=== PATIENT | female | born 1990 | race Caucasian/White ===

== ENCOUNTER 2020-10-30 21:57 | Emergency (ER) | payer SELFPAY ==
[2020-10-30 22:05] VITALS: BP 122/71; PULSE 94; RESP 14; TEMP 36.6; O2SAT 96; BMI 51.3
--- NOTE | 2020-10-30 22:07 | W.ED.BACK ---
HPI - Back Pain/Injury General: Chief Complaint: Back Pain/Injury Stated Complaint: VAGINAL PAIN/BACK PAIN Time Seen by Provider: 10/30/20 22:04 History of Present Illness: HPI Narrative: Patient is a 30-year-old female comes to the ED with lower back pain and UTI symptoms. Lower back pain started around midday today while she was cleaning around the house. She says that back pain started right after she bent over to pick something up. Back pain was 7 out of 10. She says the pain shoots down into her right leg. Patient is also complaining of having some dysuria. She says the dysuria started today. She noticed that she had some foul odor from her vagina about 2 days ago. She also reports having some pain during intercourse within the last 24 hours as well. She denies any vaginal bleeding, vaginal discharge, vaginal lesions or hematuria. Associated symptoms: Reports dysuria; Deny abdominal pain, chills, fatigue, fever(s), hematuria, nausea or vomiting Review of Systems Const: Denies: fever(s), chills or fatigue Eyes: Denies: change in vision or eye discomfort ENMT: Denies: throat pain, odynophagia, nasal discharge or nasal congestion Card: Denies: chest pain, palpitations, edema, swelling of feet/ankles, dyspnea on exertion or orthopnea Resp: Denies: dyspnea, productive cough or non-productive cough GI: Denies: abdominal pain, nausea, vomiting, diarrhea, constipation or hematochezia : Reports: dysuria and dyspareunia; Denies: flank pain or hematuria Musc: Reports: back pain (Low back pain with pain radiating down right leg.); Denies: neck pain or extremity swelling Skin/Breast: Denies: rash or new lesions Neuro: Denies: headache(s), numbness in extremities or weakness in extremities Physical Exam Const: COMMON NORMALS: no acute distress, patient oriented x3 and alert GENERAL APPEARANCE: cooperative and comfortable HENMT: COMMON NORMALS: normocephalic HEAD & SCALP: normocephalic MOUTH: Normal oral and palatal mucosa present THROAT: posterior oropharynx normal and uvula midline Neck/C-Spine: COMMON NORMALS: supple GENERAL: Yes normal visual inspection Resp: COMMON NORMALS: normal respiratory effort, No retractions, No use of accessory muscles and clear to auscultation bilaterally AUSCULTATION: clear to auscultation bilaterally Cardio: COMMON NORMALS: regular rate, regular rhythm, S1 normal heart sound present, S2 normal heart sound present, No gallops present (Cardio), No clicks present (Cardio), No murmurs present (Cardio) and Peripheral pulses 2+ throughout RATE: regular rate RHYTHM: regular rhythm HEART SOUNDS: S1 normal heart sound present and S2 normal heart sound present PERIPHERAL PULSES: Peripheral pulses 2+ throughout GI: COMMON NORMALS: Normal to inspection, nondistended, normoactive bowel sounds present, Soft to palpation, non-tender and no masses PALPATION: Yes Soft to palpation : COMMON NORMALS: Yes no CVA tenderness BLADDER/KIDNEY EXAM: Yes no CVA tenderness EXTERNAL FEMALE EXAM: No erythema, No externally tender, No external swelling, No lesion and No urethral discharge Back/Pelvis: COMMON NORMALS: no CVA tenderness LUMBAR SPINE/LOWER BACK: Yes pain with ROM, Yes paraspinal muscle tenderness Lumbar paraspinal muscle tenderness: right Right lumbar paraspinal muscle tenderness: L4 and L5 and Yes straight leg raise positive right Extremity: COMMON NORMALS: normal to inspection Neuro: COMMON NORMALS: patient oriented x3 and moves all extremities SENSORIUM/ORIENTATION: Yes alert Skin: GENERAL SKIN EXAM: dry skin Course Vital Signs: Vital signs: Vital Signs Temperature 97.8 F 10/30/20 22:05 Pulse Rate 98 10/30/20 23:29 Respiratory Rate 18 10/30/20 23:29 Blood Pressure 122/71 10/30/20 22:05 Pulse Oximetry 98 10/30/20 23:29 MDM - Back Pain/Injury MDM Narrative: Medical decision making narrative: Patient is a 30-year-old female comes to the ED with lower back pain and UTI symptoms. Patient's lower back pain started today after she was cleaning the house that she bent over and lifted something. She has pain radiating down her right leg. Patient started developing dysuria today describes having a burning sensation when she urinates. Denies any vaginal discharge, vaginal bleeding or vaginal lesions. Patient also wanting to get STD testing. hCG negative, UA shows signs of UTI. Gonorrhea chlamydia test pending. Wet prep performed and negative for BV, trichomonas and yaya. Patient was given prophylactic treatment for gonorrhea and chlamydia with Rocephin and azithromycin while here in the ED. Patient was also given Toradol, Norflex and Solu-Medrol for lower back. Patient diagnosed with UTI and lumbar radiculopathy. She was discharged with a prescription for Bactrim, Medrol Dosepak, ibuprofen 800 and methocarbamol. I instructed her that the hospital will contact her if her gonorrhea and Chlamydia labs come back positive. Return to ED precautions given. Follow-up with PCP in 7 to 10 days for reevaluation. Patient understood and agreed with plan. Lab Data: Attestation: I reviewed the patient's lab results. Labs: Lab Results 10/30/20 10/30/20 Range/Units 22:30 22:30 HCG, Qual Negative (Negative) Urine Color Dark yellow (Yellow) Urine Appearance Clear (CLEAR) Urine pH 6.5 (5-7) Ur Specific Gravit y 1.020 (1.005-1.030) Urine Protein 1+ H (Negative) Urine Glucose (UA) Norm (Normal) Urine Ketones 2+ H (Negative) Urine Blood 2+ H (Negative) Urine Nitrate Negative (Negative) Urine Bilirubin 1+ H (Negative) Urine Urobilinogen 4 H (Negative) mg/dL Ur Leukocyte Rachel ase Trace H (Negative) Urine RBC 10-15 H (0-2) /hpf Urine WBC 0-4 H (0-5) /hpf Ur Squamous Epith Cells 5-10 H (0-5) /hpf Amorphous Sediment 2+ /hpf Urine Bacteria 2+ H (NONE) /hpf Hyaline Casts 5-10 H /lpf Urine Mucus 3+ /hpf Discharge Plan Discharge Patient Disposition: Home Clinical Impression: Lumbar radiculopathy UTI (urinary tract infection) Qualifiers: Urinary tract infection type: acute cystitis Hematuria presence: with hematuria Qualified Code(s): N30.01 - Acute cystitis with hematuria Condition: Stable Prescriptions: New Bactrim DS 800-160 mg tablet 1 tab PO BID 5 Days Qty: 10 RF: 0 methocarbamol 750 mg tablet 750 mg PO Q8H Qty: 15 RF: 0 ibuprofen 800 mg tablet 800 mg PO Q8H PRN (Reason: pain) Qty: 15 RF: 0 Medrol (Dagoberto) 4 mg tablets,dose pack See Rx Instructions .ROUTE .COMPLEX Qty: 21 RF: 0 Discharge Orders: Discharge ED (Routine); Ordered 10/30/20 Ordered By: Paco Margaret Discharge Diet: Regular Discharge Activity: Resume usual activity Patient Instructions: Urinary Tract Infection in Women (ED), Lumbar Radiculopathy (ED) Activity Restrictions/Additional Instructions: Follow-up with medical provider as directed in 7 to 10 days for reevaluation. Your tested for gonorrhea chlamydia and the results are pending. Hospital contact you if you do get a positive result. Remember you have been prophylactically treated for gonorrhea and chlamydia while here in the ED, so if results positive you have already received treatment. Take medications as prescribed. Return to the ER or your medical provider if condition worsens. Please read and understand discharge instructions. If any questions, please ask. Coding Level of Care Code ED [employer] Fwd Exam Comprehensive
[2020-10-30] MEDS: ketorolac 60 mg/2 mL INJ IM (22:34)
[2020-10-30] MEDS: orphenadrine 30 mg/mL Inj 2 mL 60 MG IM (22:36)
[2020-10-30 22:39] LABS: HCG Qualitative Urine. Negative (Negative)
[2020-10-30 22:45] LABS: Urine Appearance Clear (CLEAR); Urine Color Dark Yellow (Yellow)
[2020-10-30 22:46] LABS: Bilirubin Urine 1+ (Negative); Blood Urine 2+ (Negative); Glucose Urine UA Norm (Normal); Ketones Urine 2+ (Negative); Leukocyte Esterase Urine Trace (Negative); Nitrate Urine Negative (Negative); Protein Urine 1+ (Negative); Urobilinogen Urine 4 mg/dL (Negative); WBC Urine 0-4 /hpf (0-5); pH Urine 6.5 (5-7)
[2020-10-30 22:47] LABS: Add Urine Culture? Yes; Amorphous Sediment Urine 2+ /hpf; Bacteria Urine 2+ /hpf; Mucus Urine 3+ /hpf
[2020-10-30] MEDS: azithromycin 250 mg Tablet 1000 MG PO (23:09)
[2020-10-30 23:29] VITALS: PULSE 98; RESP 18; O2SAT 98
== END 2020-10-30 23:30 | disposition home or self-care (01) ==
PROVIDERS: Emergency Provider Physician Assistant
DX: M54.16 Radiculopathy, lumbar region (principal); N30.01 Acute cystitis with hematuria
CPT/HCPCS: 81001; 81025; 87086; 87210; 87491; 87591; 96372; 99283; E0352; J0696; J1885; J2360; Q0144

== ENCOUNTER 2020-11-30 01:29 | Emergency (ER) | payer SELFPAY ==
[2020-11-30 01:32] VITALS: BP 157/102; PULSE 104; RESP 19; TEMP 36.9; O2SAT 95; BMI 47.8
--- NOTE | 2020-11-30 02:07 | W.ED.NECK ---
HPI - Neck Pain/Injury General: Chief Complaint: General Medical Stated Complaint: left side face numbness/knot on back of neck Time Seen by Provider: 11/30/20 01:40 Source: patient Mode of arrival: ambulatory Limitations: no limitations History of Present Illness: HPI Narrative: Patient is a 30-year-old female who presents to ED today with a complaint of right-sided neck pain along with burning and tingling to the right side of her face. She states symptoms began today. She has not had any injury or trauma. She is not having any radicular symptoms into her right upper extremity. She feels like her right eye is burning. She does not describe any visual changes. Denies dizziness. No tinnitus. She states pain radiates into the right posterior/occipital scalp. MD complaint: neck pain Onset (ago): hour(s) Place: home Radiation: occiput Severity: moderate Quality: burning Duration: constant Relieving factors: none Exacerbating factors: none Associated symptoms: Reports headache(s) and tingling (face); Denies dizziness or nausea Treatments prior to arrival: none Review of Systems Const: Denies: fever(s), chills, body aches, fatigue or malaise Eyes: Reports: eye discomfort (right); Denies: change in vision, blurry vision, photophobia, floaters or seeing flashes ENMT: Denies: odynophagia, ear or mastoid pain or tinnitus Card: Denies: chest pain Resp: Denies: dyspnea GI: Denies: nausea or vomiting Musc: Reports: neck pain; Denies: back pain or joint pain Skin/Breast: Denies: rash Neuro: Reports: headache(s) and sensory changes (R facial paresthesias); Denies: numbness in extremities, weakness in extremities, dizziness, confusion or Slurred speech present Physical Exam Const: COMMON NORMALS: no acute distress, patient oriented x3, no limitations and alert GENERAL APPEARANCE: cooperative NUTRITIONAL APPEARANCE: obese ORIENTATION/CONSCIOUSNESS: Yes awake, Yes oriented to person, Yes oriented to place and Yes oriented to time HENMT: COMMON NORMALS: normocephalic, atraumatic, hearing grossly normal bilaterally, external ears normal, EAC's normal, TM's normal bilaterally, Normal external nose present and Normal nasal mucous membranes and turbinates present HEAD & SCALP: normal to inspection, normocephalic and atraumatic FACE & SINUS: normal facial exam and sinuses nontender NOSE: Normal external nose present and Normal nasal mucous membranes and turbinates present EXTERNAL EAR: Yes external ears normal EXTERNAL AUDITORY CANAL: EAC's normal TYMPANIC MEMBRANE: TM's normal bilaterally Eye: COMMON NORMALS: Equal, round and reactive pupils present and EOMs intact bilaterally CONJUNCTIVA: Yes other (mild bilateral conjunctival injection) PUPIL: Yes Equal, round and reactive pupils present OTHER: no nystagmus; no Yennifer's Syndrome presnet Neck/C-Spine: NECK IMAGES: 1. TTP Neuro: GIANLUCA COMA SCALE: document GCS findings Gianluca coma scale eye opening: Spontaneous [place] coma scale verbal response: Orientated Gianluca coma scale motor response: Obey commands [place] coma scale total score: 15 COMMON NORMALS: patient oriented x3, moves all extremities and no focal motor deficits SENSORIUM/ORIENTATION: Yes alert, Yes oriented to person, Yes oriented to place and Yes oriented to time CRANIAL NERVES: Yes CN normal except as noted SPEECH: speech normal GAIT: Yes Normal gait present OTHER: reports decreased sensation to R side of face when compared to L Skin: COMMON NORMALS: no rashes or lesions noted GENERAL SKIN EXAM: no rashes or lesions noted Procedures Nerve Block Nerve Block 1: Local Anesthetic: lidocaine 1%, bupivacaine 0.5% and with epi Amount of anesthesia used (mL): 4 Side: right Nerve Blocks: occipital Procedure Successful: Yes Patient Tolerated Procedure: well Complications: none Course Vital Signs: Vital signs: Vital Signs Temperature 98.4 F 11/30/20 01:32 Pulse Rate 96 11/30/20 03:12 Respiratory Rate 18 11/30/20 03:12 Blood Pressure 150/100 11/30/20 03:12 Pulse Oximetry 98 11/30/20 03:12 MDM - Neck Pain/Injury MDM Narrative: Medical decision making narrative: Patient reports feeling better after occipital nerve block. DDx occipital headache, neck/trapezius muscle spasm, and muscle strain. At this time I have a low suspicion for an extracranial dissection but she was encouraged to return to the ED if symptoms worsen. Discharge Plan Discharge Patient Disposition: Home Clinical Impression: Occipital headache Condition: Stable Prescriptions: No Action methocarbamol 750 mg tablet 750 mg PO Q8H Qty: 15 RF: 0 ibuprofen 800 mg tablet 800 mg PO Q8H PRN (Reason: pain) Qty: 15 RF: 0 Medrol (Dagoberto) 4 mg tablets,dose pack See Rx Instructions .ROUTE .COMPLEX Qty: 21 RF: 0 Discharge Orders: Discharge ED (Routine); Ordered 11/30/20 Ordered By: Davina Pelaez Activity Restrictions/Additional Instructions: Please return to the emergency department for worsening neck pain or headache, visual changes, facial drooping, trouble speaking/swallowing, fevers, severe dizziness, passing out episodes, or any other concerns you may have. Coding Level of Care Code ED [employer] Fwd Exam Detailed
[2020-11-30] MEDS: orphenadrine 30 mg/mL Inj 2 mL 60 MG IM (02:53)
[2020-11-30] MEDS: ketorolac 60 mg/2 mL INJ IM (02:54)
[2020-11-30 03:12] VITALS: BP 150/100; PULSE 96; RESP 18; O2SAT 98
== END 2020-11-30 03:05 | disposition home or self-care (01) ==
PROVIDERS: Emergency Provider Physician Assistant
DX: G44.89 Other headache syndrome (principal)
CPT/HCPCS: 96372; 99283; J1885; J2360; J3490